=== PATIENT | female | born 1960 | race African-American/Black ===

== ENCOUNTER 2018-01-11 20:16 | Emergency (ER) | payer OTHER ==
[~2018-01-11] VITALS: Ht 167.6 cm; Wt 106.0 kg
[2018-01-11 23:32] LABS: BASOPHIL (%) 0.6 % (0-1); BASOPHIL COUNT 0.1 K/uL (0-0.1); EOSINOPHIL (%) 2.6 % (0-5); EOSINOPHIL COUNT 0.2 K/uL (0-0.3); HEMATOCRIT 33.8 % (36.0-46.0); HEMOGLOBIN 10.8 G/DL (11.9-15.5); IMMATURE GRANULOCYTE (%) 0.4 % (0.0-0.7); LYMPHOCYTE (%) 34.9 % (15-42); LYMPHOCYTE COUNT 2.9 K/uL (1.0-2.8); MCH 28.3 PG (29.0-34.0); MCV 88.5 FL (83-99); MONOCYTE (%) 5.9 % (3-12); MONOCYTE COUNT 0.5 K/uL (0-0.8); NEUTROPHIL (%) 55.6 % (45-76); NEUTROPHIL COUNT 4.6 K/uL (1.8-6.4); PLATELET COUNT 249 K/uL (156-360); RBC DIS.WIDTH-CV 12.9 % (11.8-14.6); RBC DIS.WIDTH-SD 41.1 % (39-53); RED BLOOD COUNT 3.82 M/uL (3.80-5.20); WHITE BLOOD COUNT 8.2 K/uL (4.1-10.2)
[2018-01-11 23:40] LABS: PTT 31.5 SEC (25-37)
[2018-01-11 23:45] LABS: ALBUMIN 3.6 g/dL (3.2-4.8); CHLORIDE 104 mEq/L (99-109); POTASSIUM 3.9 mEq/L (3.7-5.4); SODIUM 138 mEq/L (136-147)
[2018-01-11 23:47] LABS: GLUCOSE 105 mg/dL (70-99); TOTAL PROTEIN 7.3 g/dL (6.4-8.3)
[2018-01-11 23:49] LABS: TOTAL BILIRUBIN 0.3 mg/dL (0.0-1.0)
[2018-01-11 23:51] LABS: ALKALINE PHOSPHATASE 124 IU/L (3-129); CREATININE 0.8 mg/dL (0.6-1.3); GFR ESTIMATE (CALCULATED) > 59 mL/min/
[2018-01-11 23:52] LABS: UREA NITROGEN (BUN) 11 mg/dL (9-23)
[2018-01-11 23:53] LABS: AST (GOT) 21 IU/L (2-34)
[2018-01-11 23:54] LABS: ALT (GPT) 12 IU/L (3-49)
[2018-01-12 01:00] LABS: ERTH.SED.RATE 118 MM/HR (0-30)
[2018-01-12] MEDS ORDERED: TOPAMAX100 MG PO (01:09)
[2018-01-12] MEDS ORDERED: LYRICA100 MG PO (01:09)
[2018-01-12] MEDS ORDERED: BACTRIM,SEPT1 TABLET PO (01:09)
[2018-01-12] MEDS ORDERED: ELIQUIS2.5 MG PO (01:09)
[2018-01-12] MEDS ORDERED: CELEBREX100 MG PO (01:09)
[2018-01-12] MEDS ORDERED: DEXILANT30 MG PO (01:09)
[2018-01-12] MEDS ORDERED: SINGULAIR10 MG PO (01:10)
[2018-01-12] MEDS ORDERED: MS CONTIN100 MG PO (01:10)
[2018-01-12] MEDS ORDERED: DILAUDID8 MG PO (01:10)
[2018-01-12] MEDS ORDERED: EVZIO2 MG/0.4 M IM (01:11)
[2018-01-12 01:20] VITALS: BP 128/88
== END 2018-01-12 01:24 | disposition home or self-care (01) ==
LOC: EME 20:16
PROVIDERS: Physician Assistant
DX: R60.0 Localized edema (principal); Z96.651 Presence of right artificial knee joint; E11.9 Type 2 diabetes mellitus without complications; F17.200 Nicotine dependence, unspecified, uncomplicated
CPT/HCPCS: 73564; 80053; 83605; 85025; 85610; 85651; 85730; 86140; 87040; 93971; 99281; 99284